=== PATIENT | female | born 2000 | race Caucasian/White ===

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

== ENCOUNTER → 2022-01-16 | Outpatient (CLI) | payer OTHER, SELFPAY ==
--- NOTE | 2022-01-16 10:27 | MRI_ITS ---
EXAM: MR HEAD WITHOUT AND WITH INTRAVENOUS CONTRAST CLINICAL INDICATION: aphasia, speech problems -- n/a TECHNIQUE: Multiplanar and multisequence MR images of the brain were obtained without and with intravenous contrast. This report was created using [employer] report [employer] technology. CONTRAST: 13 ml IV Clariscan COMPARISON: None. FINDINGS: BRAIN AND EXTRA-AXIAL SPACES: No diffusion restriction to suspect acute or subacute ischemic infarct. No focal signal abnormalities throughout the brain parenchyma in all pulse sequences. Following IV contrast administration, there are no abnormal enhancing lesions intra-axially and extra-axially. No intra- or extra-axial hemorrhage. No intracranial mass or mass effect. Posterior fossa structures are unremarkable. Ventricles are appropriate for age. No hydrocephalus. Basal cisterns are patent. SELLA: Unremarkable. Normal sella turcica, pituitary gland, infundibular stalk, optic chiasm and hypothalamus. AUDITORY SYSTEM: Unremarkable. The internal auditory canals are patent. BONES/JOINTS: Unremarkable. No discrete lytic or blastic abnormalities. SINUSES: Unremarkable as visualized. Clear. MASTOID AIR CELLS: Unremarkable as visualized. Clear. ORBITS: Unremarkable as visualized. Both globes, extraocular muscles, optic nerves and retrobulbar fat appear unremarkable. VASCULATURE: Unremarkable as visualized. Normal flow voids in the major intracranial circulation. MRI/Brain W/WO Contrast IMPRESSION: Normal MRI brain with and without contrast. Electronically Signed: Tai Matthew MD at 12:06 EST ,
== END | disposition home or self-care (01) ==
PROVIDERS: PCP Pediatrics; Referring Provider Nurse Practitioner Family; Visit Provider Nurse Practitioner Family
DX: R47.01 Aphasia (principal)
CPT/HCPCS: 70553; A9575

== ENCOUNTER → 2022-05-04 | Outpatient (CLI) | payer OTHER, SELFPAY ==
[2022-05-04 15:26] LABS: Absolute Lymphocyte Count 2.96 X10^3/uL (0.83-4.51); Absolute Neutrophil Count 3.8 X10^3/uL (2.0-7.7); Basophil# 0.02 X10^3/uL; Basophil% 0.3 % (0-1); Eosinophil# 0.01 X10^3/uL; Eosinophils% 0.1 % (0-5); Hemoglobin 14.6 g/dL (12.0-15.0); Lymphocyte # 2.96 X10^3/ul (0.83-4.51); Lymphocyte % 42.2 % (19-41); Mean Corpuscular Volume 88.5 fL (81-99); Mean Platelet Vol. 11.4 fl (6.2-12.0); Monocyte# 0.27 X10^3/uL; Monocyte% 3.8 % (0-10); NRBC Flagged by Analyzer 0 % (0-5); Neutrophil # 3.75 X10^3/uL (2.7-7.7); Neutrophil % 53.5 % (47-70); Platelet Count 242 K/mm3 (150-450); RBC Distribution Width CV 11.7 % (11.6-14.6); RBC Distribution Width SD 37.3 fl (35.1-43.9); Red Blood Count 4.86 M/mm3 (4.2-5.4)
[2022-05-04 15:50] LABS: AST(SGOT) 31 U/L (15-37); Alanine Aminotransfer ALT/SGPT 26 U/L (13-56); Cholesterol 177 mg/dL (200); High Density Lipoprotein 95 mg/dL; Triglycerides 48 mg/dL; Very Low Density Lipoprotein 10 mg/dL (5-40)
[2022-05-04 16:05] LABS: hCG Titer Quant., Serum < 1 mIU/mL (1-3)
== END | disposition home or self-care (01) ==
LOC: MTLAB 12:39
PROVIDERS: PCP Pediatrics; Referring Provider Dermatology; Visit Provider Dermatology
DX: L70.0 Acne vulgaris (principal); L90.5 Scar conditions and fibrosis of skin; L71.8 Other rosacea; Z79.899 Other long term (current) drug therapy
CPT/HCPCS: 36415; 80061; 84450; 84460; 84702; 85025

== ENCOUNTER → 2022-05-29 | Outpatient (CLI) | payer OTHER, SELFPAY ==
[2022-05-29 12:00] LABS: Internal QC Validated? YES +Cl - CLEAR BKGD; Pregnancy, Urine Negative Negative
== END | disposition home or self-care (01) ==
LOC: MTLAB 10:30
PROVIDERS: PCP Pediatrics; Referring Provider Dermatology; Visit Provider Dermatology
DX: L70.0 Acne vulgaris (principal); L90.5 Scar conditions and fibrosis of skin; Z79.899 Other long term (current) drug therapy; L23.3 Allergic contact dermatitis due to drugs in contact with skin
CPT/HCPCS: 81025

== ENCOUNTER → 2022-06-07 | Outpatient (CLI) | payer OTHER, SELFPAY ==
[2022-06-07 16:33] LABS: Internal QC Validated? YES +Cl - CLEAR BKGD; Pregnancy, Urine Negative Negative
== END | disposition home or self-care (01) ==
LOC: MTLAB 14:49
PROVIDERS: PCP Pediatrics; Referring Provider Dermatology; Visit Provider Dermatology
DX: L70.0 Acne vulgaris (principal); L90.5 Scar conditions and fibrosis of skin; L23.3 Allergic contact dermatitis due to drugs in contact with skin; Z79.899 Other long term (current) drug therapy
CPT/HCPCS: 81025

== ENCOUNTER → 2022-06-27 | Outpatient (CLI) | payer OTHER, SELFPAY ==
[2022-06-27 18:18] LABS: Internal QC Validated? YES +Cl - CLEAR BKGD; Pregnancy, Urine Negative Negative
== END | disposition home or self-care (01) ==
LOC: MTLAB 15:44
PROVIDERS: PCP Pediatrics; Referring Provider Dermatology; Visit Provider Dermatology
DX: L70.0 Acne vulgaris (principal); L90.5 Scar conditions and fibrosis of skin; L23.3 Allergic contact dermatitis due to drugs in contact with skin; Z79.899 Other long term (current) drug therapy
CPT/HCPCS: 81025

== ENCOUNTER → 2022-08-01 | Outpatient (CLI) | payer OTHER, SELFPAY ==
[2022-08-01 17:46] LABS: Internal QC Validated? YES +Cl - CLEAR BKGD; Pregnancy, Urine Negative Negative
== END | disposition home or self-care (01) ==
LOC: MTLAB 15:27
PROVIDERS: PCP Pediatrics; Referring Provider Dermatology; Visit Provider Dermatology
DX: L70.0 Acne vulgaris (principal); L90.5 Scar conditions and fibrosis of skin; K13.0 Diseases of lips; L85.3 Xerosis cutis; M79.10 Myalgia, unspecified site; Z79.899 Other long term (current) drug therapy; L23.3 Allergic contact dermatitis due to drugs in contact with skin
CPT/HCPCS: 81025

== ENCOUNTER → 2022-09-14 | Outpatient (CLI) | payer OTHER, SELFPAY ==
[2022-09-14 12:22] LABS: AST(SGOT) 29 U/L (15-37); Alanine Aminotransfer ALT/SGPT 40 U/L (13-56); Cholesterol 210 mg/dL (200); High Density Lipoprotein 91 mg/dL; Triglycerides 73 mg/dL; Very Low Density Lipoprotein 15 mg/dL (5-40); hCG Titer Quant., Serum < 1 mIU/mL (1-3)
== END | disposition home or self-care (01) ==
PROVIDERS: PCP Pediatrics; Visit Provider Dermatology
DX: L70.0 Acne vulgaris (principal); L90.5 Scar conditions and fibrosis of skin; L85.3 Xerosis cutis; K13.0 Diseases of lips; M79.10 Myalgia, unspecified site; L23.3 Allergic contact dermatitis due to drugs in contact with skin; Z79.899 Other long term (current) drug therapy
CPT/HCPCS: 36415; 80061; 84450; 84460; 84702

== ENCOUNTER → 2022-10-16 | Outpatient (CLI) | payer OTHER, SELFPAY ==
[2022-10-16 12:05] LABS: Internal QC Validated? YES +Cl - CLEAR BKGD; Pregnancy, Urine Negative Negative
== END | disposition home or self-care (01) ==
LOC: MTLAB 09:28
PROVIDERS: PCP Pediatrics; Referring Provider Dermatology; Visit Provider Dermatology
DX: L70.0 Acne vulgaris (principal); L90.5 Scar conditions and fibrosis of skin; L85.3 Xerosis cutis; K13.0 Diseases of lips; M79.10 Myalgia, unspecified site; L23.3 Allergic contact dermatitis due to drugs in contact with skin; Z79.899 Other long term (current) drug therapy
CPT/HCPCS: 81025

== ENCOUNTER → 2022-11-13 | Outpatient (CLI) | payer OTHER, SELFPAY ==
[2022-11-13 12:07] LABS: Internal QC Validated? YES +Cl - CLEAR BKGD; Pregnancy, Urine Negative Negative
== END | disposition home or self-care (01) ==
PROVIDERS: PCP Pediatrics; Referring Provider Dermatology; Visit Provider Dermatology
DX: L70.0 Acne vulgaris (principal); L90.5 Scar conditions and fibrosis of skin; L85.3 Xerosis cutis; K13.0 Diseases of lips; M79.10 Myalgia, unspecified site; L23.3 Allergic contact dermatitis due to drugs in contact with skin; Z79.899 Other long term (current) drug therapy
CPT/HCPCS: 81025

== ENCOUNTER → 2022-12-28 | Outpatient (CLI) | payer OTHER, SELFPAY ==
[2022-12-28 17:45] LABS: Internal QC Validated? YES +Cl - CLEAR BKGD; Pregnancy, Urine Negative Negative
== END | disposition home or self-care (01) ==
LOC: MTLAB 14:49
PROVIDERS: PCP Pediatrics
DX: L70.0 Acne vulgaris (principal); L90.5 Scar conditions and fibrosis of skin; L85.3 Xerosis cutis; K13.0 Diseases of lips; M79.10 Myalgia, unspecified site; L23.3 Allergic contact dermatitis due to drugs in contact with skin; Z79.899 Other long term (current) drug therapy
CPT/HCPCS: 81025

== ENCOUNTER → 2023-01-26 | Outpatient (CLI) | payer OTHER, SELFPAY ==
[2023-01-26 17:38] LABS: Internal QC Validated? YES +Cl - CLEAR BKGD; Pregnancy, Urine Negative Negative
== END | disposition home or self-care (01) ==
LOC: MTLAB 14:41
PROVIDERS: PCP Pediatrics; Referring Provider Dermatology; Visit Provider Dermatology
DX: L70.0 Acne vulgaris (principal); L90.5 Scar conditions and fibrosis of skin; L85.3 Xerosis cutis; K13.0 Diseases of lips; M79.10 Myalgia, unspecified site; L23.3 Allergic contact dermatitis due to drugs in contact with skin; Z79.899 Other long term (current) drug therapy
CPT/HCPCS: 81025

== ENCOUNTER → 2023-03-16 | Outpatient (CLI) | payer OTHER, SELFPAY ==
--- OUTSIDE RECORDS SUMMARY | 2023-03-16 16:08 | XMS RPT_ITS | CCD ---
Author Name Unknown Address [address] [place] [address] Organization [facility] Care Team Providers Care Structures Engineer Name Role Phone Sheri Vyas Unavailable eRre Dowell Unavailable Unavailable Rere Todd Unavailable Unavailable Sheri Vyas Attending Rere Dowell Primary Care Unavailable Sheri Vyas Attending Emelina Rere Lee Primary Care Unavailable Fast DO, Nehal A Unavailable Manchak ELECTRO MECHANICAL ENGINEER, Emmy Unavailable Unavailable Unavailable Unavailable Unavailable Unavailable Fast DO, Nehal A Unavailable Unavailable Unavailable Harriet Zamudio CNP Consulting Unavailable Harriet Zamudio CNP Attending Unavailable Harriet Zamudio CNP Unavailable Harriet Zamudio CNP Unavailable Slarb SALES TRAINEE, Melissa Unavailable Unavailable Fast DO, Nehal A Unavailable Unavailable Primary Care Provider Unavailabl e BYRON LI Referring Unavailable BYRON LI Referring Unavailable BYRON LI Attending Unavailable BYRON LI Attending Unavailable CRISTIAN LEES~[id number] Admitting Unavailable CRISTIAN LEES~[id number], CRISTIAN MCDONALD Attending Unavailable RERE TODD Primary Care Unavailable TAMARA FOSTER MD Consulting Unavailable TAMARA FOSTER MD Consulting Unavailable RERE TODD Consulting Unavailable RERE TODD Consulting Unavailable Medications Current Medications Medication Drug Class(es) Dates Sig (Normalized) Sig (Original) busPIRone hydrochloride 15 mg oral tablet (14 sources) Start: 11-01-2023 take 1 tablet by mouth three times daily busPIRone 15 mg oral tablet 1 (one) Tablet tid for 90 days Quantity: 270 {Tablet} Refills: 3 Ordered: 20-Dec-2022 Aida Paz MD Start : 20-Dec-2022 Active Completed/Discontinued Medications Medication Drug Class(es) Dates Sig (Normalized) Sig (Original) B Wekxict-V68-Y Injection Injectable (11 sources) B Tgxigvs-W69-M Injection Injectable o2gbytg Active drospirenone / Ethinyl Estradiol (15 sources) Progestin, Estrogen Start: 12-18-2022 take 1 tablet by mouth once daily VESTURA, 28, 3-0.02 mg per tablet Take 1 tablet by mouth once daily. 30 tablet 6 12/18/2022 Active Problems Active Problems Problem Classification Problem Date Documented Da te Episodic/Chronic Anxiety disorders (20 sources) Mixed anxiety and depressive disorder; Translations: [Anxiety and depression] 08-30-2020 Chronic Past or Other Problems Problem Classification Problem Date Documented Da te Episodic/Chronic Unclassified (3 sources) Separation of AC joint Unclassified (2 sources) Mild concussion NEGATED: Highlighted row has been ruled out!Unclassified (7 sources) Problem Onset: 08-30-2020 08-30-2020 Results Test Name Value Interpretation Reference Range Facil ity Vital Signs Date Time Vital Sign Value Performing Clinician Facility 06-14-2022 13:16-0400 Body weight 70.31 kg Byron Li MD Work Phone: [facility] 06-14-2022 13:16-0400 Diastolic blood pressure 74 mm[Hg] Byron Li MD Work Phone: [facility] 06-14-2022 13:16-0400 Systolic blood pressure 130 mm[Hg] Byron Li MD Work Phone: [facility] 01-02-2022 14:19-0500 Body height 161.29 cm Melissa Ashton LPN [facility] Work Phone: 01-02-2022 14:19-0500 Body mass index (BMI) [Ratio] 26.72 kg/m2 [facility] Work Phone: 01-02-2022 14:19-050 Body surface area Derived from formula 1.74 m2 Melissa Ashton LPN [facility] Work Phone: 01-02-2022 14:050 Body temperature 97.7 [degF] Melissa Ashton LPN [facility] Work Phone: 01-02-2022 14:050 Body weight 69.51 kg Melissa Ashton LPN [facility] Work Phone: 01-02-2022 14:050 Diastolic blood pressure 82 mm[Hg] Melissa Ashton SALES TRAINEE [facility] Work Phone: Encounters Encounter Date Encounter Type Care Provider Facility Start: 12-18-2022 Refill Byron manuel MD Work Phone: OB/Gynecology Procedures Date Procedure Procedure Detail Performing Clinician Start: 06-14-2022 Urine test visual color cmprsn meths Byron Li MD Work Phone: Start: 01-16-2022 End: 01-16-2022 Brain W/WO Contrast Procedure Note: See Note; NOTES: [facility] Imaging Services [address] [place] [id number] Brain W/WO Contrast MR#: [id number] Acct: [id number] Name: THEODORE AGUILAR Rep #: [id number] : 2000 F 21 From: Tai Matthew MD PCP: Dr. Rere Todd MD Status: REG CLI Study: Brain W/WO Contrast Date of Exam: 01/16/22 Exam# [id number] Ordering Dr: Harriet Zamudio COIL REPAIR TECHNICIAN- C EXAM: MR HEAD WITHOUT AND WITH INTRAVENOUS CONTRAST CLINICAL INDICATION: aphasia, speech problems -- n/a TECHNIQUE: Multiplanar and multisequence MR images of the brain were obtained without and with intravenous contrast. This report was created using [employer] report generation technology. CONTRAST: 13 ml IV Clariscan COMPARISON: None. FINDINGS: BRAIN AND EXTRA-AXIAL SPACES: No diffusion restriction to suspect acute or subacute ischemic infarct. No focal signal abnormalities throughout the brain parenchyma in all pulse sequences. Following IV contrast administration, there are no abnormal enhancing lesions intra-axially and extra-axially. No intra- or extra-axial hemorrhage. No intracranial mass or mass effect. Posterior fossa structures are unremarkable. Ventricles are appropriate for age. No hydrocephalus. Basal cisterns are patent. SELLA: Unremarkable. Normal sella turcica, pituitary gland, infundibular stalk, optic chiasm and hypothalamus. AUDITORY SYSTEM: Unremarkable. The internal auditory canals are patent. BONES/JOINTS: Unremarkable. No discrete lytic or blastic abnormalities. SINUSES: Unremarkable as visualized. Clear. MASTOID AIR CELLS: Unremarkable as visualized. Clear. ORBITS: Unremarkable as visualized. Both globes, extraocular muscles, optic nerves and retrobulbar fat appear unremarkable. VASCULATURE: Unremarkable as visualized. Normal flow voids in the major intracranial circulation. MRI/Brain W/WO Contrast IMPRESSION: Normal MRI brain with and without contrast. Electronically Signed: Tai Matthew MD at 12:06 [facility] Reading Location ID and State: [address] [place] [address] , Service support , CC: Harriet Zamudio COIL REPAIR TECHNICIAN; Dr. Rere Todd MD Equipment Analyst: Signed Harriet Zamudio CNP Work Phone: Plan of Treatment Date Care Activity Detail Author Start: 10-25-2023 Urine microalbumin profile [facility] Start: 06-15-2023 CHLAMYDIA SCREENING (18-24) CHLAMYDIA SCREENING (18-24) [facility] Start: 06-15-2023 GC (GONORRHEA) SCREENING (18-24) GC (GONORRHEA) SCREENING (18-24) [facility] Start: 10-20-2022 Influenza vaccination [facility] Start: 02-19-2022 DEPRESSION ASSESSMENT DEPRESSION ASSESSMENT [facility] Start: 01-02-2022 Antinuclear antibodies neeraj NEERAJ (ANTINUCLEAR ANTIBODY) (02515) [facility] Work Phone: Start: 01-02-2022 Antibody borrelia burgdorferi confirmatory tst Lyme Disease,Serum, Western Blot (43219) [facility] Work Phone: Start: 11-14-2022 Antibody borrelia burgdorferi lyme disease Lyme Disease Antibody W/ Reflex (62083) [facility]; [facility] Work Phone: Start: 01-02-2022 Assay of thyroid stimulating hormone tsh TSH (THYROID STIMULATING HORMONE) (76089) [facility]; [facility] Work Phone: Start: 01-02-2022 Sedimentation rate rbc automated Sedimentation Rate-ESR (25873) [facility] Work Phone: Start: 01-02-2022 C-reactive protein C-REACTIVE PROTEIN (76076) [facility] Work Phone: Start: 01-02-2022 Comprehensive metabolic panel METABOLIC PANEL, COMPREHENSIVE (46500) [facility]; [facility] Work Phone: Start: 01-02-2022 Blood count complete auto&auto difrntl wbc CBC with auto diff (93295) [facility]; [facility] Work Phone: Start: 01-02-2022 Antinuclear antibodies neeraj NEERAJ (ANTINUCLEAR ANTIBODY) (88512) [facility]; [facility] Work Phone: Start: 01-02-2022 Extractable nuclear antigen antibody any method Systemic Lupus Profile (25654) [facility]; [facility] Work Phone: Start: 01-02-2022 Cyanocobalamin vitamin b-12 VITAMIN B12 AND FOLATES (32505) [facility]; [facility] Work Phone: Start: 01-02-2022 1 25 dihydroxy includes fractions if performed VITAMIN D, 1, 25-DIHYDROXY (55327) [facility]; [facility] Work Phone: Start: 01-02-2022 Procedure Education Eprescribed prescriptions (G8553) [facility]; [facility] Work Phone: Start: 08-15-2021 Procedure Education Eprescribed prescriptions (G8553) [facility]; [facility] Work Phone: Start: 01-24-2021 Procedure Education Eprescribed prescriptions (G8553) [facility]; [facility] Work Phone: Start: 08-30-2020 25 hydroxy includes fractions if performed Vitamin D Hydroxy (50261) [facility]; [facility] Work Phone: Start: 08-30-2020 Cyanocobalamin vitamin b-12 VITAMIN B-12 (CYANOCOBALAMIN) (18947) [facility]; [facility] Work Phone: Start: 08-30-2020 Urnls dip stick/tablet reagent auto microscopy URINALYSIS, W/ MICRO (61316) [facility]; [facility] Work Phone: Start: 08-30-2020 Assay of thyroid stimulating hormone tsh TSH (28151) [facility]; [facility] Work Phone: Start: 08-30-2020 Blood count complete auto&auto difrntl wbc CBC W/AUTO DIFF WBC (00417) [facility]; [facility] Work Phone: Start: 08-30-2020 Comprehensive metabolic panel METABOLIC PANEL, COMPREHENSIVE (43637) [facility]; [facility] Work Phone: Start: 08-30-2020 Procedure Education Eprescribed prescriptions (G8578) [facility]; [facility] Work Phone: Start: 2020 CHLAMYDIA SCREENING (18-24) CHLAMYDIA SCREENING (18-24) [facility] Start: 2020 GC (GONORRHEA) SCREENING (18-24) GC (GONORRHEA) SCREENING (18-24) [facility] Start: 2020 HEPATITIS C SCREENING HEPATITIS C SCREENING [facility] Start: 2020 HIV SCREENING HIV SCREENING [facility] Start: 2016 PEDS TO ADULT TRANSITION ANNUAL ASSESSMENT PEDS TO ADULT TRANSITION ANNUAL ASSESSMENT [facility] Start: 2014 PEDS TO ADULT TRANSITION INITIAL DISCUSSION PEDS TO ADULT TRANSITION INITIAL DISCUSSION [facility] Start: 2002 COVID-19 VACCINE (#1) COVID-19 VACCINE (#1) [facility] Chlamydia trachomatis+Neisseria gonorrhoeae DNA [Presence] in Unspecified specimen by YANET with probe detection GC/CHLAMYDIA DNA DET Lab Routine Encounter for insertion of mirena IUD 06/14/2022 1:56 PM EDT [facility] Work Phone: T VAGINALIS AMPLIFICATION T VAGINALIS AMPLIFICATION Lab Routine Encounter for insertion of mirena IUD 06/14/2022 1:56 PM EDT [facility] Work Phone: [facility] Work Phone: [facility] Work Phone: [facility] Work Phone: [facility] Immunizations Immunization Date Immunization Notes Care Provider [facility] 05-07-2020 Human Papillomavirus 9-valent vaccine Byron Li MD Work Phone: [facility] Work Phone: 04-16-2020 meningococcal B vacc ine, recombinant, OMV, adjuvanted Byron Li MD Work Phone: [facility] Work Phone: 01-07-2020 pneumococcal polysaccharide vaccine, 23 valent Byron Li MD Work Phone: [facility] Work Phone: 12-24-2018 Human Papillomavirus 9-valent vaccine Byron Li MD Work Phone: [facility] Work Phone: 12-24-2018 influenza, injectabl e, quadrivalent, preservative free Byron Li MD Work Phone: [facility] Work Phone: 12-24-2018 meningococcal B vacc ine, recombinant, OMV, adjuvanted Byron Li MD Work Phone: [facility] Work Phone: 12-24-2018 meningococcal polysaccharide (groups A, C, Y and W-135) diphtheria toxoid conjugate vaccine (MCV4P) Byron Li MD Work Phone: [facility] Work Phone: 12-24-2018 influenza virus vacc ine, unspecified formulation Byron Li MD Work Phone: [facility] 12-14-2017 Human Papillomavirus 9-valent vaccine Byron Li MD Work Phone: [facility] Work Phone: 12-14-2017 influenza, injectabl e, quadrivalent, preservative free Byron Li MD Work Phone: [facility] Work Phone: 12-08-2016 influenza, injectabl e, quadrivalent, preservative free Byron Li MD Work Phone: [facility] Work Phone: 12-08-2016 poliovirus vaccine, inactivated Byron Li MD Work Phone: [facility] Work Phone: 11-29-2015 hepatitis A vaccine, pediatric/adolescent dosage, 2 dose schedule Byron Li MD Work Phone: [facility] Work Phone: 11-29-2015 influenza, injectabl e, quadrivalent, preservative free Byron Li MD Work Phone: [facility] Work Phone: 11-18-2014 hepatitis A vaccine, pediatric/adolescent dosage, 2 dose schedule Byron Li MD Work Phone: [facility] Work Phone: 10-24-2013 meningococcal polysaccharide (groups A, C, Y and W-135) diphtheria toxoid conjugate vaccine (MCV4P) Byron Li MD Work Phone: [facility] Work Phone: 10-24-2013 tetanus toxoid, redu jose diphtheria toxoid, and acellular pertussis vaccine, adsorbed Byron Li MD Work Phone: [facility] Work Phone: 12-08-2011 influenza, seasonal, injectable Byron Li MD Work Phone: [facility] Work Phone: 12-05-2010 influenza, seasonal, injectable Byron Li MD Work Phone: [facility] Work Phone: 11-15-2009 influenza virus vacc ine, whole virus Byron Li MD Work Phone: [facility] Work Phone: 12-19-2008 novel influenza-H1N1 -09, preservative-free, injectable Byron Li MD Work Phone: [facility] Work Phone: 11-26-2008 influenza, seasonal, injectable Byron Li MD Work Phone: [facility] Work Phone: 05-04-2008 varicella virus vaccine Alta Li MD Work Phone: [facility] Work Phone: 01-24-2008 influenza virus vacc ine, whole virus Byron Li MD Work Phone: [facility] Work Phone: 11-04-2007 diphtheria, tetanus toxoids and acellular pertussis vaccine, unspecified formulation Byron Li MD Work Phone: [facility] Work Phone: 11-04-2007 measles, mumps and rubella virus vaccine Byron Li MD Work Phone: [facility] Work Phone: 11-04-2007 poliovirus vaccine, inactivated Byron Li MD Work Phone: [facility] Work Phone: 11-03-2005 measles, mumps and rubella virus vaccine Byron Li MD Work Phone: [facility] Work Phone: 09-28-2003 diphtheria, tetanus toxoids and acellular pertussis vaccine, unspecified formulation Byron Li MD Work Phone: [facility] Work Phone: 09-28-2003 haemophilus influenz ae type b vaccine, PRP-T conjugate Byron Li MD Work Phone: [facility] Work Phone: 05-08-2003 hepatitis B vaccine, pediatric or pediatric/adolescent dosage Byron Li MD Work Phone: [facility] Work Phone: 05-08-2003 pneumococcal conjuga te vaccine, 7 valent Byron Li MD Work Phone: [facility] Work Phone: 05-08-2003 varicella virus vaccine Alta Li MD Work Phone: [facility] Work Phone: 2002 diphtheria, tetanus toxoids and acellular pertussis vaccine, unspecified formulation Byron Li MD Work Phone: [facility] Work Phone: 2002 haemophilus influenz ae type b vaccine, PRP-T conjugate Byron Li MD Work Phone: [facility] Work Phone: 2002 pneumococcal conjuga te vaccine, 7 valent Byron Li MD Work Phone: [facility] Work Phone: 2002 diphtheria, tetanus toxoids and acellular pertussis vaccine, unspecified formulation Byron Li MD Work Phone: [facility] Work Phone: 2002 haemophilus influenz ae type b vaccine, PRP-T conjugate Byron Li MD Work Phone: [facility] Work Phone: 2002 pneumococcal conjuga te vaccine, 7 valent Byron Li MD Work Phone: [facility] Work Phone: 2002 poliovirus vaccine, inactivated Byron Li MD Work Phone: [facility] Work Phone: 2002 diphtheria, tetanus toxoids and acellular pertussis vaccine, unspecified formulation Byron Li MD Work Phone: [facility] Work Phone: 2002 haemophilus influenz ae type b vaccine, PRP-T conjugate Byron Li MD Work Phone: [facility] Work Phone: 2002 pneumococcal conjuga te vaccine, 7 valent Byron Li MD Work Phone: [facility] Work Phone: 2002 poliovirus vaccine, inactivated Byron Li MD Work Phone: [facility] Work Phone: 2002 hepatitis B vaccine, pediatric or pediatric/adolescent dosage Byron Li MD Work Phone: [facility] Work Phone: 2002 hepatitis B vaccine, pediatric or pediatric/adolescent dosage Byron Li MD Work Phone: [facility] Work Phone: Payers Date Payer Category Payer Private Health Insurance [id number] 2020 Private Health Insurance [id number] 2002 Unknown [id number] 1973 Unknown [id number] 1973 Unknown [id number] 1973 Unknown [id number] 1973 Unknown [id number] 1959 Private Health Insurance [id number] Unknown [id number] Unknown [employer] PPO Social History Date Type Detail Facility Start: 06-14-2022 End: 06-21-2022 Caffeine Use Caffeine Use [facility] Work Phone: Tobacco use: Tobacco use: [facility] Work Phone: Start: 02-02-2014 Tobacco smoking status NHIS Never smoked tobacco [facility] Work Phone: Start: 06-14-2022 Alcohol intake Not Asked [facility] Start: 2000 Sex Assigned At Not on file [facility] Start: 06-14-2022 End: 06-21-2022 Tobacco use panel [facility] National Score (1-100), lower number is lower risk 36 [facility] Clinical Notes 11-20-2020 to 12-18-2022 Telephone Encounter - Danna Edmonds RN - 12/18/2022 12:16 PM AISLINN Cosme - 06/22/2022 9:41 AM Kusum Valerio RN - 06/14/2022 2:53 PM EDTPatient Instructions Note Date & Type Note Facility 12-18-2022 Miscellaneous Notes Patient last seen in May 2022. Asking if her OCP can be sent in by [facility] instead of her timber management assistant whom she doesn't see anymore. RX pending with updated pharmacy. Also, the Mirena IUD is still on her medication list. Patient stated that she had a bad reaction the day it was inserted so the IUD was removed? Danna Edmonds RN documented in this encounter [facility] 06-22-2022 Note HNO ID: [id number] Author: AISLINN Park Service: ? Author Type: Genetic Counselor Type: Progress Notes Filed: 06/26/2022 2:22 PM Note Text: [facility] Consultation Note Genetic Counselor: Wade Washburn, MS, CGC Patient: Theodore Aguilar Patient Name and confirmed at initiation of visit. HIGH LEVEL SUMMARY: The patient has a pathogenic variant in BRCA2 ([id number]) confirming a diagnosis of Hereditary Breast and Ovarian Cancer syndrome. NCCN management guidelines were reviewed and she was recommended to establish in Medical Breast at the age of 27. Genetic counseling and consideration of genetic testing is recommended for the patient's mother and father now and her sisters at a later date. IDENTIFICATION AND CHIEF COMPLAINT: Dr. Byron Li requested a consultation for genetic counseling and risk assessment for Theodore Aguilar, a 22 year old female, for discussion of her personal history of a pathogenic variant in BRCA2. She presents to clinic today to discuss the possibility of a genetic predisposition to cancer, and to further clarify her risks, as well as her family members' risks for cancer. HISTORY OF PRESENT ILLNESS: Theodore Aguilar is a 22 year old female with no personal history of cancer. She underwent XomeDx (clinical whole exome sequence analysis) at an outside institution in 2019 due to a history of: hypogammaglobulinemia, immunodeficiency, and recurrent infections. Testing incidentally identified a pathogenic variant in BRCA2. This finding was recently discussed with her AUTOMOTIVE PARTS COUNTER ASSOCIATE and led to today's consult to discuss impact of results on her care and family. CANCER SURVEILLANCE HISTORY: Mammograms: No Breast MRI's: No Breast Biopsies: No Colonoscopy: No EGD: No GI Polyps: N/A Pelvic Exam: Yes / 06/11 Pap Smear: Yes / 06/11 Dermatology: No SOCIAL HISTORY: Social History Tobacco Use Smoking status: Never FAMILY HISTORY: We obtained a detailed, 4-generation family history. Significant diagnoses are listed below: Maternal grandfather: metastatic prostate cancer at 55, 58 2 paternal great aunts with breast cancer A copy of the patient's pedigree will be available under the scanned documents tab following today's visit. GENETIC COUNSELING RISK ASSESSMENT, DISCUSSION, AND SUGGESTED FOLLOW UP: We reviewed that Theodore's genetic testing results confirm a diagnosis of Hereditary Breast and Ovarian Cancer Syndrome Hereditary Breast and Ovarian Cancer Syndrome Women who have a BRCA2 pathogenic/likely pathogenic variant have a 56-87% lifetime risk of developing breast cancer and a 13-29% risk for developing ovarian cancer. This is much higher than the 12% lifetime risk of developing breast cancer and 1-2% lifetime risk of developing ovarian cancer for women in the general population. Women with BRCA2 pathogenic/likely pathogenic variants who have had breast cancer have up to a 60% risk of developing a second breast cancer. Men and women with BRCA2 pathogenic/likely pathogenic variants have a 5-10% lifetime risk of pancreatic cancer. Hereditary Breast and Ovarian Cancer Syndrome Management (NCCN Guidelines Version 2.2020) WOMEN Breast awareness starting at age 18 y Clinical breast exam, every 6-12 mo, starting at 25 y Breast screening Age 25-29 y, annual breast MRI screening with contrast (or mammogram with consideration of tomosynthesis, only if MRI is unavailable) or individualized based on family history if a breast cancer diagnosis before age 30 is present Age 30-75 y, annual mammogram and breast MRI screening. Age >75 y, management should be considered on an individual basis. For women with a BRCA2 pathogenic/likely pathogenic variant who are treated for breast cancer, screening of remaining breast tissue with annual mammography and breast MRI should continue. Discuss option of risk-reducing mastectomy Counseling may include discussion regarding degree of protection, reconstruction options, and risks. In addition, the family history and residual breast cancer risk with age and life expectancy should be considered during counseling. Recommend risk-reducing salpingo-oophorectomy (ideally in consultation with a foreman or supervisor and operator oncologist), typically between 35 and 40 y, and upon completion of child bearing. Because ovarian cancer onset in patients with BRCA2 pathogenic/likely pathogenic variants is an average of 8-10 years later than patients with BRCA1 pathogenic/likely pathogenic variants, it is reasonable to delay RRSO until age 40-45y in those with BRCA2 pathogenic/likely pathogenic variants unless age at diagnosis in the family warrants earlier age for consideration in prophylactic surgery. See Risk Reducing Salpingo-Oophorectomy (RRSO) Protocol in NCCN Guidelines for Ovarian Cancer - Principles of Surgery. Counseling includ (more content not included)... [facility] 06-22-2022 History of Present illness Narrative [facility] Consultation Note Genetic Counselor: Wade Washburn, MS, [facility] Patient: Theodore Aguilar Patient Name and confirmed at initiation of visit. HIGH LEVEL SUMMARY: The patient has a pathogenic variant in BRCA2 ([id number]) confirming a diagnosis of Hereditary Breast and Ovarian Cancer syndrome. NCCN management guidelines were reviewed and she was recommended to establish in Medical Breast at the age of 27. Genetic counseling and consideration of genetic testing is recommended for the patient's mother and father now and her sisters at a later date. IDENTIFICATION AND CHIEF COMPLAINT: Dr. Byron Li requested a consultation for genetic counseling and risk assessment for Theodore Aguilar, a 22 year old female, for discussion of her personal history of a pathogenic variant in BRCA2. She presents to clinic today to discuss the possibility of a genetic predisposition to cancer, and to further clarify her risks, as well as her family members' risks for cancer. HISTORY OF PRESENT ILLNESS: Theodore Aguilar is a 22 year old female with no personal history of cancer. She underwent XomeDx (clinical whole exome sequence analysis) at an outside institution in 2019 due to a history of: hypogammaglobulinemia, immunodeficiency, and recurrent infections. Testing incidentally identified a pathogenic variant in BRCA2. This finding was recently discussed with her AUTOMOTIVE PARTS COUNTER ASSOCIATE and led to today's consult to discuss impact of results on her care and family. CANCER SURVEILLANCE HISTORY: Mammograms: No Breast MRI's: No Breast Biopsies: No Colonoscopy: No EGD: No GI Polyps: N/A Pelvic Exam: Yes / 06/11 Pap Smear: Yes / 06/11 Dermatology: No SOCIAL HISTORY: Social History Tobacco Use Smoking status: Never FAMILY HISTORY: We obtained a detailed, 4-generation family history. Significant diagnoses are listed below: Maternal grandfather: metastatic prostate cancer at 55, 58 2 paternal great aunts with breast cancer A copy of the patient's pedigree will be available under the scanned documents tab following today's visit. GENETIC COUNSELING RISK ASSESSMENT, DISCUSSION, AND SUGGESTED FOLLOW UP: We reviewed that Theodore's genetic testing results confirm a diagnosis of Hereditary Breast and Ovarian Cancer Syndrome Hereditary Breast and Ovarian Cancer Syndrome Women who have a BRCA2 pathogenic/likely pathogenic variant have a 56-87% lifetime risk of developing breast cancer and a 13-29% risk for developing ovarian cancer. This is much higher than the 12% lifetime risk of developing breast cancer and 1-2% lifetime risk of developing ovarian cancer for women in the general population. Women with BRCA2 pathogenic/likely pathogenic variants who have had breast cancer have up to a 60% risk of developing a second breast cancer. Men and women with BRCA2 pathogenic/likely pathogenic variants have a 5-10% lifetime risk of pancreatic cancer. Hereditary Breast and Ovarian Cancer Syndrome Management (NCCN Guidelines Version 2.202) WOMEN Breast awareness starting at age 18 y Clinical breast exam, every 6-12 mo, starting at 25 y Breast screening Age 25-29 y, annual breast MRI screening with contrast (or mammogram with consideration of tomosynthesis, only if MRI is unavailable) or individualized based on family history if a breast cancer diagnosis before age 30 is present Age 30-75 y, annual mammogram and breast MRI screening. Age >75 y, management should be considered on an individual basis. For women with a BRCA2 pathogenic/likely pathogenic variant who are treated for breast cancer, screening of remaining breast tissue with annual mammography and breast MRI should continue. Discuss option of risk-reducing mastectomy Counseling may include discussion regarding degree of protection, reconstruction options, and risks. In addition, the family history and residual breast cancer risk with age and life expectancy should be considered during counseling. Recommend risk-reducing salpingo-oophorectomy (ideally in consultation with a foreman or supervisor and operator oncologist), typically between 35 and 40 y, and upon completion of child bearing. Because ovarian cancer onset in patients with BRCA2 pathogenic/likely pathogenic variants is an average of 8-10 years later than patients with BRCA1 pathogenic/likely pathogenic variants, it is reasonable to delay RRSO until age 40-45y in those with BRCA2 pathogenic/likely pathogenic variants unless age at diagnosis in the family warrants earlier age for consideration in prophylactic surgery. See Risk Reducing Salpingo-Oophorectomy (RRSO) Protocol in NCCN Guidelines for Ovarian Cancer - Principles of Surgery. Counseling includes discussion of reproductive desires, extent of cancer risk, degree of protection for breast and ovarian cancer, management of menopausal symptoms, possible short-term hormone replacement therapy to a recommended maximum age of natural menopause, and related medical issues. Salpingectomy alone is not the standard of care for risk reduction although clinical trials are ongoing. The concern for risk-reducing salpingectomy alone is that women are still at risk for developing ovarian cancer. In addition, in premenopausal women, oophorectomy likely reduces the risk of developing breast cancer but the magnitude is uncertain and may be gene-specific. Address psychosocial, social, and [id number] aspects of undergoing risk-reducing mastectomy and/or salpingo-oophorectomy. For those patients who have not elected risk-reducing salpingo-oophorectomy, transvaginal ultrasound combined with serum CA-125 for ovarian cancer screening, although of uncertain benefit, may be considered at the clinician's discretion starting at age 30-35 y. Consider risk reduction agents as options for breast and ovarian cancer, including discussion risks and benefits. (See NCCN Guidelines for Breast Cancer Risk Reduction) MEN AND WOMEN Consider investigational imaging and screening studies, when available (eg, novel imaging technologies, more frequent screening intervals) in the context of a clinical trial. Education regarding signs and symptoms of cancer(s), especially those associated with BRCA2 pathogenic/likely pathogenic variants. No specific screening guidelines exist for melanoma, but general melanoma risk management is appropriate, such as annual full-body skin examination and minimizing UV exposure. REPRODUCTIVE OPTIONS For patients of reproductive age, advise about options for diagnosis and assisted reproduction including pre-implantation genetic diagnosis. Discussion should include known risks, limitations, and benefits of these technologies. BRCA2 pathogenic/likely pathogenic variants may be associated with the rare autosomal recessive condition, Fanconi anemia. Thus, for this gene, consideration would be given to carrier testing the partner for mutations in the same gene if it would inform reproductive decision-making and/or risk assessment and management. Since the patient does not have a first-degree or second-degree relative with pancreatic cancer, screening for pancreatic cancer is not indicated at this time. 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 [phone]) at age 27 to review medical management options and determine the best plan for her own care. Given patient's age, referral with gynecologic oncology should be deferred at this time. First-degree relatives (siblings, children, and parents) of an individual with a BRCA2 mutation each have a 50% risk of also having this mutation. Other relatives (grandchildren, nieces, nephews, aunts, uncles, grandparents, and cousins) could also be at risk of having this mutation. The patient should share her genetic testing results with all at-risk relatives so they may pursue genetic counseling. We recommend following up with genetics every few years to learn of any updates to medical management guidelines for individuals with BRCA2 pathogenic/likely pathogenic variants. The patient was seen for a total of 70 minutes, greater than 50% of which was spent [id number] counseling. This plan is being carried out under the oversight of Dr. Marisol Linda. This note will also be sent to the referring provider via the electronic medical record. Wade Washburn MS, [facility] Licensed, Certified Genetic Counselor [facility] CC: Dr. Byron Linda documented in this encounter [facility] [place] 06-14-2022 Note HNO ID: [id number] Author: Byron Li MD Service: ? Author Type: Physician Type: Progress Notes Filed: 06/14/2022 1:38 PM Note Text: Theodore presents today for IUD insertion for contraception. Patient's last menstrual period was 05/05/2022 (exact date). GC/chlamydia: Collected today test: negative Side effects including irregular bleeding were discussed with the patient. The patient understands that it should be removed in 7 years or sooner if the patient desires a . IUD source: office provided IUD lot #: [id number] Exp date: 07/18/2024 UNIVERSAL PROTOCOL / SAFETY CHECKLIST Procedure to be Performed: Mirena IUD isnertion Sign In: A Moment of CARE was completed. Personnel directly involved with the procedure wore the appropriate PPE (Personal Protective Equipment). Patient/Surrogate Stated/Verified: PATIENT VERIFIED(optional for EMERGENT procedures): Patient name, Date of , Relevant allergies, and The intended procedure Time Out Communication: Intended patient and procedure match the source documents. Consent documented and matches the intended procedure. No implant(s) inserted. Sign Out: SIGN OUT (optional for EMERGENT procedures): No specimen collected. All instruments, equipment, possible retained foreign bodies accounted for. Post-procedure follow-up management communicated and Plan of Care Visit completed when applicable. Byron Li M.D. The cervix was prepped with betadine. The uterus sounded to 7 cm and the uterus is Anteverted.. Using sterile technique, the Mirena IUD was inserted without difficulty and the string was cut to 2cm from the external os of the cervix. Patient tolerated procedure well. PLAN: Patient was advised to observe for signs and symptoms of infection including but not limited to fever, malodorous vaginal discharge and/or pain. The patient was told to check the string monthly for accurate placement. Bleeding expectations were reviewed. Follow up for next annual exam or sooner as needed. Byron Li MD [facility] 06-14-2022 Nurse Note Patient given injection of toradol- see APR. Tolerated well. Dr. Li in office at time of injection. Santa Valerio RN documented in this encounter [facility] 06-14-2022 Miscellaneous Notes Addended by: BYRON LI on: 06/14/2022 02:45 PM Modules accepted: Orders documented in this encounter [facility] 06-14-2022 Instructions Opal Lucas Ma - 06/14/2022 1:15 PM EDT POST IUD INSTRUCTIONS You may have irregular bleeding during the first 3 months of use. You may have mild-severe cramping for the next 48 hours. You may use over the counter medication (Motrin, Tylenol) as needed. Your IUD must be removed or replaced based on the following table: IUD Type Removed or replaced within: Olga 3 years Kyleena 5 years Mirena 8 years Paragard 10 years Call my office for signs/symptoms of infection such as severe cramping, fever, or unusual bleeding. Check for string placement as instructed by your doctor. If you have any additional questions, please contact the office. documented in this encounter [facility] 06-14-2022 History of Present illness Narrative Theodore presents today for IUD insertion for contraception. Patient's last menstrual period was 05/05/2022 (exact date). GC/chlamydia: Collected today test: negative Side effects including irregular bleeding were discussed with the patient. The patient understands that it should be removed in 7 years or sooner if the patient desires a . IUD source: office provided IUD lot #: [id number] Exp date: 07/18/2024 UNIVERSAL PROTOCOL / SAFETY CHECKLIST Procedure to be Performed: Mirena IUD isnertion Sign In: A Moment of CARE was completed. Personnel directly involved with the procedure wore the appropriate PPE (Personal Protective Equipment). Patient/Surrogate Stated/Verified: PATIENT VERIFIED(optional for EMERGENT procedures): Patient name, Date of , Relevant allergies, and The intended procedure Time Out Communication: Intended patient and procedure match the source documents. Consent documented and matches the intended procedure. No implant(s) inserted. Sign Out: SIGN OUT (optional for EMERGENT procedures): No specimen collected. All instruments, equipment, possible retained foreign bodies accounted for. Post-procedure follow-up management communicated and Plan of Care Visit completed when applicable. Byron Li M.D. The cervix was prepped with betadine. The uterus sounded to 7 cm and the uterus is Anteverted.. Using sterile technique, the Mirena IUD was inserted without difficulty and the string was cut to 2cm from the external os of the cervix. Patient tolerated procedure well. PLAN: Patient was advised to observe for signs and symptoms of infection including but not limited to fever, malodorous vaginal discharge and/or pain. The patient was told to check the string monthly for accurate placement. Bleeding expectations were reviewed. Follow up for next annual exam or sooner as needed. Byron Li MD documented in this encounter [facility] [place] 05-30-2022 Note HNO ID: [id number] Author: Byron Li MD Service: ? Author Type: Physician Type: Progress Notes Filed: 05/30/2022 3:44 PM Note Text: Theodore is a 22 year old No obstetric history on file. who presents for an annual gynecologic exam with complaints, recurrent UTIs . Genetic marker for breast cancer. Considering new control, sometimes forgets doses. Has gotten UTIs more frequently since becoming more sexually active. Burning a nd frequency when symptomatic. Treated 3 times in past 2 months or so. Treated at urgent care. Has been on OCPS for 5 years or so for cycle regularity but would like to consider LARC. Presents: alone Menses: cycles every 25 days and 5 days of flow. Contraception: Vestura HPV vaccine: Yes Last pap smear: never Sexually active: Yes Concerns about STIs, asymptomatic but wants peace of mine OB History No obstetric history on file. 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 No abdominal pain, nausea, vomiting, diarrhea, or constipation. Bladder: No dysuria, gross hematuria, urinary frequency, urinary urgency, or incontinence. Breast: No breast lumps, nipple d/c, overlying skin changes, redness or skin retraction. TEACHING PHYSICIAN NOTE OF PERSONAL INVOLVEMENT IN CARE: I have personally seen and examined the patient and performed the medical decision-making components. I have reviewed the medical student documentation and verified the findings in the note as written. Any additions or changes are noted in bold/italics. Signature: Byron Li Date: 05/30/2022 Time: 3:43 PM Below portion of note completed by me. Allergies and current medication updated:Yes EXAM: BP 124/82 Ht 5' 3.25 (1.61m) Wt 158 lb (71.7kg) LMP 05/05/2022 BMI 27.75 kg/(m2). GENERAL: pleasant, in no apparent distress HEENT: Normocephalic, atraumatic, mucus membranes moist, and no lesions NECK: Supple, full range of motion, no adenopathy, and thyroid normal DERMATOLOGY: Normal, without lesions, non-icteric, and non-hirsute BREAST: soft, non-tender, symmetric, no dominant mass, normal nipple-areolar complex, no lymphadenopathy, and no nipple discharge CHEST: Normal inspiratory effort ABDOMEN: soft, non-tender, and no masses PELVIC: deferred BIMANUAL: deferred NEURO: alert and oriented x3,exam grossly non-focal EXTREMITIES: normal ASSESSMENT/PLAN: 1) Health maintenance: Pap starting at the age of 21. Safe sex practices reviewed. HPV vaccine completed series.. 2) Contraception: combined hormonal contraceptives. Contraceptive options reviewed and information provided. 3) STD screening: would like at time of IUD insertion Recurrent UTIS, d/w her importance of f/u here for cultures so I can document recurrence and may need urology referal. Reviewed symptomatic measures. AZO prn until can be evaluated. Trial of prophylactic macrobid. Desires IUD insertion. D/w her r/ba/ to this 4) Follow up one year or sooner as needed. BRCA 2 positive according to records she brought, copy scanned in. D/ wher needs genetic counseling, family may need tested as could alter screening and treatment recommendations. She states understanding and has not had this in the past. urine culture today since has had recurences Byron Li MD [facility] 11-22-2020 Note Discharge/Transfer S evelia Name: Theodore Aguilar MR#: [id number] : 2000 Room #: 6113/01 Age/Sex: 20 y.o. female Admit Date: 11/20/2020 Admitting: Jackson Hendricks DO Discharge Date: 11/22/2020 Discharged from: [facility] Attending: Raffi Magaña MD Final Diagnosis: COVID-19 Significant Findings (Problem List): Active Hospital Problems Diagnosis COVID-19 Orthostatic hypotension Pre-syncope Resolved Hospital Problems No resolved problems to display. Reason for Hospitalization: Pre-syncope Discharge Condition: Good Hospital Course (Care, treatment and services provided): Brief Narrative Hospital Course: Theodore Aguilar is a 20 y.o. female, with history of hypogammaglobinemia and recent COVID positive test and COVID antibody infusion, who presented with multiple near-syncopal episodes. 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 Was seen by PCP 4 days SHUTTLE FIXER and found to be COVID positive. At this visit, patient had a syncopal episode. [place] nausous, diaphoretic, lightheaded with blurry vision. Sent to [place] ED, where workup was negative and patient sent home. Had monoclonal antibody infusion 2 days SHUTTLE FIXER, and had another pre-syncopal event where she described the same symptoms. These events happened subsequently multiple times at home, one in which pulse ox read HR 43. Patient returned to ED. In the ED, bradycardic, vitals otherwise wnl. She received 1L NSB x2. CXR unremarkable. EKG showed bradycardia but was NSR. CBC, BMP,CRP, D-dimer, LFTs, troponin all WNL. ESR 10. BNP 45. Urine studies wnl. HCG negative. Orthostatics were positive. Transferred to general medical floor for further management. On the floor, patient was well-appearing, and denied dizziness. mIVF were started. No SOB, pain, congestion, or cough throughout hospitalization. Patient did not require supplemental oxygen. Orthostatic vitals were repeated in AM and improved. She had some significant nausea improved with zofran and was tolerating PO on DC. Discharged home in stable condition and will follow-up with PCP in 2-3 days. Immunizations(administered this admission): None Significant Imaging Results: X-Ray Chest Pa(ap) & Lateral Final Result IMPRESSION: Normal radiographic appearance of the chest This report has been created using voice recognition software EKG 12 lead (Results Pending) Pending Test Results and Tests to Obtain as Outpatient: In-Process Results No orders found from 10/24/2020 to 11/23/2020. Preliminary Results No orders found from 10/24/2020 to 11/23/2020. Disposition: She was discharged to home. Discharge Medications: She did not have significant changes to their home medications (see below) Medication List START taking these medications Morning Afternoon Evening Bedtime As Needed ondansetron 8 MG disintegrating tablet Take 1 Tablet (8 mg) by mouth every 8 hours as needed for Nausea for up to 5 days Commonly known as: ZOFRAN-ODT [ ] [ ] [ ] [ ] [ ] CONTINUE taking these medications which HAVE NOT changed at this visit Morning Afternoon Evening Bedtime As Needed acetaminophen 500 MG tablet Take by mouth every 4 hours as needed for Pain Commonly known as: TYLENOL [ ] [ ] [ ] [ ] [ ] BENADRYL ALLERGY/SINUS PO Take 5 mL by mouth 4 times daily [ ] [ ] [ ] [ ] [ ] busPIRone 5 MG tablet Take by mouth Commonly known as: BUSPAR [ ] [ ] [ ] [ ] [ ] cyanocobalamin 1000 MCG/ML injection Commonly known as: VIT B12 [ ] [ ] [ ] [ ] [ ] Drospirenone-Ethinyl Estradiol 3-0.02 MG tablets Take 1 Tablet by mouth daily Commonly known as: AGNIESZKA [ ] [ ] [ ] [ ] [ ] DULoxetine 30 MG capsule Take by mouth Commonly known as: CYMBALTA [ ] [ ] [ ] [ ] [ ] EPIDUO FORTE 0.3-2.5 % Gel Generic drug: Adapalene-Benzoyl Peroxide [ ] [ ] [ ] [ ] [ ] fluticasone 50 MCG/ACT nasal spray 2 Sprays by Each Nare route daily Commonly known as: FLONASE [ ] [ ] [ ] [ ] [ ] ibuprofen 200 MG tablet Take by mouth every 8 hours as needed for Pain Take with meals. Commonly known as: MOTRIN [ ] [ ] [ ] [ ] [ ] methylPREDNISolone 8 MG tablet Take 8 mg by mouth 3 times daily Commonly known as: MEDROL [ ] [ ] [ ] [ ] [ ] sulfamethoxazole-trimethoprim 400-80 MG tablet Take 1 Tablet by mouth daily Commonly known as: BACTRIM [ ] [ ] [ ] [ ] [ ] SUMAtriptan Succinate 100 MG tablet Take 1 Tab (100 mg) by mouth as needed (migraine) Commonly known as: IMITREX [ ] [ ] [ ] [ ] [ ] STOP taking these medications Azithromycin 500 MG tablet Commonly known as: ZITHROMAX Where to Get Your Medications These medications were sent to [facility] [address] [facility] [address] [place] [id number] ondansetron 8 MG disintegra (more content not included)... [facility] 11-20-2020 Note MEDICAL ADMISSION HI STORY AND PHYSICAL Date of Service: 11/21/2020 Attending Provider: Jackson Hendricks DO Primary Care Provider: Rere Todd MD Chief Complaint: Pre-syncopal episodes Reason for Hospitalization: Acute or unresolved changes in physiologic status History of Present illness: IP H&P HPI: Theodore is a 20 y.o. female With a PmHx of hypogammaglobinemia who presents with pre-syncopal episodes in the setting of recent Covid-19 infection. She is accompanied by her father. The history is provided by the patient and father One week prior to admission, Theodore developed congestion, rhinorrhea then a few days later was followed by severe headache, fatigue, and body aches. Was seen by PCP 4 days prior to admission and found to be COVID positive. At this visit, patient had a syncopal episode, which was the first of her lifetime. During this episode she felt very nauseas, diaphoretic, lightheaded and her vision was splotchy . She states that she lost consciousness momentarily and this was the only episode, that was a true syncopal episode. Patient sates that the nurse made her lay down and she felt back to baseline within 5 minutes, however she was taken directly from that PCP office visit to [facility], via ambulance. Patient had a negative work-up at [facility] and was sent home. Due to medical history, she met indications for Covid-19 monoclonal antibody infusion which she received 2 days prior to admisison. During that infusion she had a pre-syncopal event which she describes the same as previous episode. This time she reports never losing consciousness and again retuning to baseline within 5 mins after she laid down. These pre-syncopal episodes continued to occur about 3 more times at home. Patient had a pulse oximeter at home which read a heart rate of 43 after one of these episodes. Patient has only experienced these episodes while sitting up or standing. These episodes always come on suddenly, last 5-10 mins and patient will return to baseline in 5-10 minutes. No reported confusion before, during or following pre-syncopal episodes. Patient called her PCP after experiencing a few episodes at home and was directed to ED. In the ED, VSS. She received 1L NSB. EKG showed bradycardia but was NSR. CBC, BMP,CRP,D-dimer, ESR, LFTs, BNP, troponin all WNL. Chest x-ray, and urine studies were both WNL. Orthostatics were positive for HR and BP. Two NSB were given. On the floor, [facility], patient slightly bradycardic in 50's, but asymptomatic. Patient well appearing and denied dizziness, pain, SOB. MIVF were started and orthostatic vitals were done. Review of Systems: General: fever, fatigue, body aches HEENT: headache, rhinorrhea, no taste or smell. CV: Negative for chest pain, heart palpitations RESP: cough, no wheezing, shortness of breath GI: nausea, no vomiting, diarrhea, constipation, bloody stools : Negative for decreased urine output, hematuria, dysuria NEURO: syncope, no weakness, abnormal movements, numbness, tingling Musculoskeletal: Negative for myalgias, joint pain, back pain SKIN: Negative for rashes, lesions, changes in skin Medical/Surgical History: Past Medical History: Diagnosis Date Abdominal pain, other specified site 10/16/2013 Environmental allergies GERD (gastroesophageal reflux disease) 01/21/2014 Immunodeficiency On IVIG until 2009 Intermittent asthma 01/21/2014 Past Surgical History: Procedure Laterality Date ADENOIDECTOMY History: History Length: 53.3 cm Weight: 3.374 kg Delivery Method: Vaginal Gestation Age: 36.5 wks Development History: Milestones: All met as expected Diet History: Age appropriate / normal for age Drug/Food Allergies: Allergies Allergen Reactions Seasonal Allergies Other (See Comments) Runny nose Immunizations: Immunization History Administered Date(s) Administered DTaP 2002, 2002, 2002, 09/28/2003, 11/04/2007 Dtap, Unspecified Formulation 2002, 2002, 2002, 09/28/2003, 11/04/2007 H1N1 2008 Influenza A Monovalent 0.25 mL 12/19/2008 HIB 2002, 2002, 2002, 09/28/2003 HPV 9-valent 12/14/2017, 12/24/2018, 05/07/2020 Hepatitis A (PED/ADOL) 11/18/2014, 11/29/2015 Hepatitis B Ped/Adol 2002, 2002, 05/08/2003 INFLUENZA SPLIT 0.5 ML 11/15/2009, 12/05/2010, 12/08/2011 IPV 2002, 2002, 11/04/2007, 12/08/2016 Influenza Vaccine 01/24/2008 Influenza Vaccine 0.5 mL Quadrivalent (PF) 11/29/2015, 12/08/2016, 12/14/2017, 12/24/2018 Influenza Whole 01/24/2008, 11/15/2009 Influenza, Seasonal, Injectable 11/26/2008, 12/05/2010, 12/08/2011 MMR 11/03/2005, 11/04/2007 Meningococcal Conjugate ACWY Vaccine (MENACTRA) 10/24/2013, 12/24/2018 Pneumococcal Conjugate 2002, 2002, 2002, 05/08/2003 Pneumococcal Polysaccharide 01/07/2020 Serogroup B Meningococcal Vaccine (BEXSERO) 12/24/2018, 04/16/19 (more content not included)... [facility] Diagnosis BRCA2 gene mutation positive in female- Primary [facility] Name Dates Details Patient Instructions Indication:Nonsmoker Start:30-Aug-2020 Instruction Type:Provider Instructions for Treatment How to Access Health Informa tion Online using Patient Portal and 3rd [employer] Apps Indication:Nonsmoker Start:30-Aug-2020 Instruction Type:Patient Education [facility] Work Phone: insViewReple* Name Dates Details Patient Instructions Indication:Nonsmoker Start:30-Aug-2020 Instruction Type:Provider Instructions for Treatment How to Access Health Informa tion Online using Patient Portal and [employer]rd [employer] Apps Indication:Nonsmoker Start:30-Aug-2020 Instruction Type:Patient Education [facility]; [facility] Work Phone: insViewReple* Name Dates Details Patient Instructions Indication:Anxiety and depression Start:24-Jan-2021 Instruction Type:Provider Instructions for Treatment Patient Instructions Indication:Anxiety and depression Start:13-Oct-2020 Instruction Type:Provider Instructions for Treatment How to Access Health Informa tion Online using Patient Portal and [employer]rd [employer] Apps Indication:Anxiety and depression Start:13-Oct-2020 Instruction Type:Patient Education Patient Instructions Indication:Nonsmoker Start:30-Aug-2020 Instruction Type:Provider Instructions for Treatment How to Access Health Informa tion Online using Patient Portal and [employer]rd [employer] Apps Indication:Nonsmoker Start:30-Aug-2020 Instruction Type:Patient Education [facility]; [facility] Work Phone: insViewReple* Name Dates Details Patient Instructions Indication:Fatigue Start:11-Apr-2021 Instruction Type:Provider Instructions for Treatment Patient Instructions Indication:Anxiety and depression Start:24-Jan-2021 Instruction Type:Provider Instructions for Treatment Patient Instructions Indication:Anxiety and depression Start:13-Oct-2020 Instruction Type:Provider Instructions for Treatment How to Access Health Informa tion Online using Patient Portal and [employer]rd [employer] Apps Indication:Anxiety and depression Start:13-Oct-2020 Instruction Type:Patient Education Patient Instructions Indication:Nonsmoker Start:30-Aug-2020 Instruction Type:Provider Instructions for Treatment How to Access Health Informa tion Online using Patient Portal and [employer]rd [employer] Apps Indication:Nonsmoker Start:30-Aug-2020 Instruction Type:Patient Education [facility]; [facility] Work Phone: instructions* Name Dates Details Patient Instructions Indication:Separation of AC joint Start:15-Aug-2021 Instruction Type:Provider Instructions for Treatment Patient Instructions Indication:Fatigue Start:11-Apr-2021 Instruction Type:Provider Instructions for Treatment Patient Instructions Indication:Anxiety and depression Start:24-Jan-2021 Instruction Type:Provider Instructions for Treatment Patient Instructions Indication:Anxiety and depression Start:13-Oct-2020 Instruction Type:Provider Instructions for Treatment How to Access Health Informa tion Online using Patient Portal and [employer]rd [employer] Apps Indication:Anxiety and depression Start:13-Oct-2020 Instruction Type:Patient Education Patient Instructions Indication:Nonsmoker Start:30-Aug-2020 Instruction Type:Provider Instructions for Treatment How to Access Health Informa tion Online using Patient Portal and [employer] Apps Indication:Nonsmoker Start:30-Aug-2020 Instruction Type:Patient Education [facility]; [facility] Work Phone: instructions* Name Dates Details Patient Instructions Indication:Separation of AC joint Start:15-Aug-2021 Instruction Type:Provider Instructions for Treatment Patient Instructions Indication:Fatigue Start:11-Apr-2021 Instruction Type:Provider Instructions for Treatment Patient Instructions Indication:Anxiety and depression Start:24-Jan-2021 Instruction Type:Provider Instructions for Treatment Patient Instructions Indication:Anxiety and depression Start:13-Oct-2020 Instruction Type:Provider Instructions for Treatment How to Access Health Informa tion Online using Patient Portal and [employer] Apps Indication:Anxiety and depression Start:13-Oct-2020 Instruction Type:Patient Education Patient Instructions Indication:Nonsmoker Start:30-Aug-2020 Instruction Type:Provider Instructions for Treatment How to Access Health Informa tion Online using Patient Portal and 3rd [employer] Apps Indication:Nonsmoker Start:30-Aug-2020 Instruction Type:Patient Education [facility]; [facility] Work Phone: instructions* Name Dates Details Patient Instructions Indication:Hypogammaglobulinemia Start:02-Jan-2022 Instruction Type:Provider Instructions for Treatment How to Access Health Informa tion Online using Patient Portal and [employer]rd [employer] Apps Indication:Hypogammaglobulinemia Start:02-Jan-2022 Instruction Type:Patient Education Patient Instructions Indication:Separation of AC joint Start:15-Aug-2021 Instruction Type:Provider Instructions for Treatment Patient Instructions Indication:Fatigue Start:11-Apr-2021 Instruction Type:Provider Instructions for Treatment Patient Instructions Indication:Anxiety and depression Start:24-Jan-2021 Instruction Type:Provider Instructions for Treatment Patient Instructions Indication:Anxiety and depression Start:13-Oct-2020 Instruction Type:Provider Instructions for Treatment How to Access Health Informa tion Online using Patient Portal and [employer]rd [employer] Apps Indication:Anxiety and depression Start:13-Oct-2020 Instruction Type:Patient Education Patient Instructions Indication:Nonsmoker Start:30-Aug-2020 Instruction Type:Provider Instructions for Treatment How to Access Health Informa tion Online using Patient Portal and [employer] Apps Indication:Nonsmoker Start:30-Aug-2020 Instruction Type:Patient Education [facility]; [facility] Work Phone: instructions* Name Dates Details Patient Instructions Indication:Hypogammaglobulinemia Start:02-Jan-2022 Instruction Type:Provider Instructions for Treatment How to Access Health Informa tion Online using Patient Portal and [employer] Apps Indication:Hypogammaglobulinemia Start:02-Jan-2022 Instruction Type:Patient Education Patient Instructions Indication:Separation of AC joint Start:15-Aug-2021 Instruction Type:Provider Instructions for Treatment Patient Instructions Indication:Fatigue Start:11-Apr-2021 Instruction Type:Provider Instructions for Treatment Patient Instructions Indication:Anxiety and depression Start:24-Jan-2021 Instruction Type:Provider Instructions for Treatment Patient Instructions Indication:Anxiety and depression Start:13-Oct-2020 Instruction Type:Provider Instructions for Treatment How to Access Health Informa tion Online using Patient Portal and [employer] Apps Indication:Anxiety and depression Start:13-Oct-2020 Instruction Type:Patient Education Patient Instructions Indication:Nonsmoker Start:30-Aug-2020 Instruction Type:Provider Instructions for Treatment How to Access Health Informa tion Online using Patient Portal and [employer] Apps Indication:Nonsmoker Start:30-Aug-2020 Instruction Type:Patient Education [facility]; [facility] Work Phone: instructions* Name Dates Details Patient Instructions Indication:Hypogammaglobulinemia Start:02-Jan-2022 Instruction Type:Provider Instructions for Treatment How to Access Health Informa tion Online using Patient Portal and [employer]rd [employer] Apps Indication:Hypogammaglobulinemia Start:02-Jan-2022 Instruction Type:Patient Education Patient Instructions Indication:Separation of AC joint Start:15-Aug-2021 Instruction Type:Provider Instructions for Treatment Patient Instructions Indication:Fatigue Start:11-Apr-2021 Instruction Type:Provider Instructions for Treatment Patient Instructions Indication:Anxiety and depression Start:24-Jan-2021 Instruction Type:Provider Instructions for Treatment Patient Instructions Indication:Anxiety and depression Start:13-Oct-2020 Instruction Type:Provider Instructions for Treatment How to Access Health Informa tion Online using Patient Portal and [employer]rd [employer] Apps Indication:Anxiety and depression Start:13-Oct-2020 Instruction Type:Patient Education Patient Instructions Indication:Nonsmoker Start:30-Aug-2020 Instruction Type:Provider Instructions for Treatment How to Access Health Informa tion Online using Patient Portal and [employer]rd [employer] Apps Indication:Nonsmoker Start:30-Aug-2020 Instruction Type:Patient Education [facility]; [facility] Work Phone: Instructions* Name Dates Details Patient Instructions Indication:Hypogammaglobulinemia Start:02-Jan-2022 Instruction Type:Provider Instructions for Treatment How to Access Health Informa tion Online using Patient Portal and [employer]rd [employer] Apps Indication:Hypogammaglobulinemia Start:02-Jan-2022 Instruction Type:Patient Education Patient Instructions Indication:Separation of AC joint Start:15-Aug-2021 Instruction Type:Provider Instructions for Treatment Patient Instructions Indication:Fatigue Start:11-Apr-2021 Instruction Type:Provider Instructions for Treatment Patient Instructions Indication:Anxiety and depression Start:24-Jan-2021 Instruction Type:Provider Instructions for Treatment Patient Instructions Indication:Anxiety and depression Start:13-Oct-2020 Instruction Type:Provider Instructions for Treatment How to Access Health Informa tion Online using Patient Portal and [employer]rd [employer] Apps Indication:Anxiety and depression Start:13-Oct-2020 Instruction Type:Patient Education Patient Instructions Indication:Nonsmoker Start:30-Aug-2020 Instruction Type:Provider Instructions for Treatment How to Access Health Informa tion Online using Patient Portal and [employer]rd [employer] Apps Indication:Nonsmoker Start:30-Aug-2020 Instruction Type:Patient Education [facility]; [facility] Work Phone: Summary Purpose Family History Unknown Family Member Name Dates Details Family Members In General Comments:anxiety cad fibromy algia dm Status:Active Mother Comments:anxiety Status:Active Unknown Family Member Name Dates Details Family Members In General Comments:anxiety cad fibromy algia dm Status:Active Mother Comments:anxiety Status:Active Unknown Family Member Name Dates Details Family Members In General Comments:anxiety cad fibromy algia dm Status:Active Mother Comments:anxiety Status:Active Unknown Family Member Name Dates Details Family Members In General Comments:anxiety cad fibromy algia dm Status:Active Mother Comments:anxiety Status:Active Unknown Family Member Name Dates Details Family Members In General Comments:anxiety cad fibromy algia dm Status:Active Mother Comments:anxiety Status:Active Unknown Family Member Name Dates Details Family Members In General Comments:anxiety cad fibromy algia dm Status:Active Mother Comments:anxiety Status:Active Unknown Family Member Name Dates Details Family Members In General Comments:anxiety cad fibromy algia dm Status:Active Mother Comments:anxiety Status:Active Unknown Family Member Name Dates Details Family Members In General Comments:anxiety cad fibromy algia dm Status:Active Mother Comments:anxiety Status:Active Advance Directives No Advanced Directives Records FoundNo Advanced Directives Records FoundNo Advanced Directives Records FoundNo Advanced Directives Records FoundNo Advanced Directives Records FoundNo Advanced Directives Records FoundNo Advanced Directives Records Found Medications Administered Section Inactive Administered Medications - up to 3 most recent administrations Medication Order MAR Action Action Date Dose Rate Site keTORolac 60 mg injection (Toradol) 60 mg, INTRAMUSCULAR, ONCE, 1 dose, On Sun06/14/22 at 1500, Ketorolac (Toradol) is indicated for the short-term (up to 5 days) management of moderately severe acute pain. Continuation of ketorolac (Toradol) beyond 5 days increases the risk of developing serious adverse events. Please verify the duration of therapy for ketorolac (Toradol)., If ordered PRN for pain, patient/guardian may elect to receive this medication for higher pain levels INSTEAD of the opioid, if preferred: Yes Given 06/14/2022 2:50 PM EDT 60 mg Buttocks, Left levonorgestrel 21 mcg/24 hours (8 yrs) 52 mg 1 Each intrauterine device (MIRENA) 1 Each, INTRAUTERINE, ONCE (UP TO 30 DAYS AMB), 1 dose, On Sun06/14/22 at 1400, Hazardous Potential Reproductive Risk Drug: Use appropriate PPE. Given 06/14/2022 1:55 PM EDT 1 Each Additional Source Comments INFORMATION SOURCE (unrecogn ized section and content) DATE CREATED AUTHOR AUTHOR'S ORGANIZ ATION 04/27/2018 [facility] DATE CREATED AUTHOR AUTHOR'S ORGANIZ ATION 05/18/2018 [facility] DATE CREATED AUTHOR AUTHOR'S ORGANIZ ATION 11/24/2020 [facility] DATE CREATED AUTHOR AUTHOR'S ORGANIZ ATION 01/02/2022 [facility] DATE CREATED AUTHOR AUTHOR'S ORGANIZ ATION 06/28/2022 [facility] DATE CREATED AUTHOR AUTHOR'S ORGANIZ ATION 08/15/2022 [facility] Source Comments (unrecognize d section and content) In the event this informatio n is protected by the Federal Confidentiality of Alcohol and Drug Abuse Patient Records regulations: The Federal rules restrict any use of the information to criminally investigate or prosecute any alcohol or drug abuse patient.[facility] the event this information is protected by the Federal Confidentiality of Alcohol and Drug Abuse Patient Records regulations: The Federal rules restrict any use of the information to criminally investigate or prosecute any alcohol or drug abuse patient.[facility] the event this information is protected by the Federal Confidentiality of Alcohol and Drug Abuse Patient Records regulations: The Federal rules restrict any use of the information to criminally investigate or prosecute any alcohol or drug abuse patient.[facility] Reason for Visit (unrecogniz ed section and content) Specialty Diagnoses / Procedures Referred By Mega castillo Referred To Contact [facility] Diagnoses Encounter for insertion of mirena IUD Procedures INSERT INTRAUTERINE DEVICE LEVONORGESTREL IU 52MG 5 YR INSERT INTRAUTERINE DEVICE Byron Li MD [address] [place] [address] [facility] [address] [place] [id number] Referral ID Status Reason Start Date Expiration Date Visits Requested Visits Authorized [id number] Authorized Auto-Generat ed Referral 02/19/2022 02/18/2023 2 2 Specialty Diagnoses / Procedures Referred By Mega castillo Referred To Contact Diagnoses BRCA2 gene mutation positive in female Procedures CONSULT TO MEDICAL GENETICS - [facility]ER MED[facility] GENETICS COUNSELING EACH 30 MINUTES Byron Li MD [address] [place] [address] [id number] [place] [address] Referral ID Status Reason Start Date Expiration Date Visits Requested Visits Authorized [id number] Pending Review PCP Requested Referral Auto-Generate d Referral 05/31/2022 05/30/2023 1 1 Reason Onset Date Comments Refill Request 12/18/2022 FOR RECORDS PERTAINING TO PATIENTS WHO ARE OR HAVE BEEN ENROLLED IN A CHEMICAL DEPENDENCY/SUBSTANCEABUSE PROGRAM, SOME INFORMATION MAY BE OMITTED. This clinical summary was aggregated from multiple sources. Caution should be exercised in using it in the provision of clinical care. This summary normalizes information from multiple sources, and as a consequence, information in this document may materially change the coding, format and clinical context of patient data. In addition, data may be omitted in some cases. CLINICAL DECISIONS SHOULD BE BASED ON THE PRIMARY CLINICAL RECORDS. [facility]. provides no warranty or guarantee of the accuracy or completeness of information in this document.
[2023-03-16 18:00] LABS: Internal QC Validated? YES +Cl - CLEAR BKGD; Pregnancy, Urine Negative Negative
== END | disposition home or self-care (01) ==
LOC: MTLAB 15:41
PROVIDERS: PCP Pediatrics; Referring Provider Dermatology; Visit Provider Dermatology
DX: L70.0 Acne vulgaris (principal); L90.5 Scar conditions and fibrosis of skin; L85.3 Xerosis cutis; L23.3 Allergic contact dermatitis due to drugs in contact with skin; K13.0 Diseases of lips; M79.10 Myalgia, unspecified site; Z79.899 Other long term (current) drug therapy
CPT/HCPCS: 81025

== ENCOUNTER 2023-09-19 08:18 | Emergency (ER) | payer OTHER, SELFPAY ==
[2023-09-19 08:18] VITALS: BP 131/83; PULSE 122; RESP 20; TEMP 38.1; O2SAT 95; BMI 29.5
--- NOTE | 2023-09-19 08:39 | CT_ITS ---
STUDY: CT BRAIN WITHOUT CONTRAST REASON FOR EXAM: Female, 23 years old. Headache RADIATION DOSAGE (If Supplied By Facility): CTDIvol = ( 44.99 ) mGy, DLP = ( 1153.53 ) mGycm TECHNIQUE: Transaxial CT imaging of the brain was performed without administration of intravenous contrast material. Individualized dose optimization techniques were used for this CT. COMPARISON: No relevant priors. FINDINGS: Normal soft tissue structures. Normal calvarium. Normal size ventricles and extra-axial spaces for the patient''s age. Normal white matter tracts of the cerebral hemispheres. Normal basal ganglia and thalami. Normal brainstem. Normal cerebellum. There is no intracranial hemorrhage. There are no findings of an acute ischemic infarction. Normal visualized paranasal sinuses. CT/Brain/Head without Contrast IMPRESSION: Normal unenhanced CT scan of the brain. Electronically Signed: Akil Saleh MD at 9:58 EDT ,
--- NOTE | 2023-09-19 08:40 | EKG12_ITS ---
Test Reason : SOB Blood Pressure : / mmHG Vent. Rate : 095 BPM Atrial Rate : 095 BPM P-R Int : 154 ms QRS Dur : 084 ms QT Int : 338 ms P-R-T Axes : 048 020 026 degrees QTc Int : 424 ms Normal sinus rhythm Normal ECG Confirmed by MACY LEES, STANFORD ([id number]), editor in chief ELIOT RAMOS ([id number]) on 09/21/2023 10:22:10 AM Referred By: Confirmed By:FARIDEH CAVAZOS MD
--- NOTE | 2023-09-19 08:52 | EDS_ITS ---
HPI History of Present Illness Chief Complaint: Fever Narrative Narrative: Patient is a 23-year-old female with a past medical history of hypogammaglobulinemia who presented to the emergency department with a chief complaint headache, fever, chills, neck pain and back pain. Patient states that she has been ill since Sunday and states that she feels like she is getting worse. She states that she has been taking Advil and Tylenol [id number] without any symptomatic relief. She noted that she was shaking for approximately 3 hours yesterday. Patient states that she has not been around anybody sick recently noted that her sibling have been sick about a week to 2 weeks ago now with a virus. Denies any other recent sick contacts, travel history, dorm room stay or other close quarters today. Patient rates her headache a 10 out of 10 here in the emergency department states that lights and loud noises bother her head. [facility] Medical History Immune deficiency disorder Home Medications ?Medication ?Instructions ?Recorded ?Last Taken ?Type ibuprofen 200 mg tablet (Advil) 200 mg PO Q6H PRN Pain 02/07/20 09/19/23 History duloxetine 30 mg capsule,delayed 30 mg PO DAILY 12/19/22 09/16/23 History release cyanocobalamin (vitamin B-12) 1,000 mcg IM Q21D 09/19/23 09/13/23 History 1,000 mcg/mL injection solution Allergy/AdvReac Type Severity Reaction Status Date / Time No Known Allergies Allergy Verified 03/27/23 09:39 Family History no significant family his Social History Smoking Status: Never smoker ROS ROS ED ROS Narrative Constitutional: Complains of headache and fever and chills as noted above denies any dizziness Eyes: Denies any changes in vision double vision blurry vision Cardiovascular: Denies chest pain or palpitations Respiratory: Complains of cough denies any shortness of breath or wheezing Abdomen: Denies abdominal pain vomiting diarrhea states that she does have some nausea : Denies any painful urination, hematuria, polyuria Neurological: Denies any numbness, weakness, tingling Musculoskeletal: Complains of back pain as noted above Skin: Denies rashes or lesions EXAM Physical Exam Narrative Exam Narrative: General: Patient was lying in bed did appear to be uncomfortable secondary to headache and not feeling well Head: Atraumatic, normocephalic Eyes: PERRL bilaterally, EOMI bilaterally, no conjunctival injection noted Neck: Soft, supple, trachea midline, patient does have full range of motion of her neck no concern for meningitis. Cardiovascular: Patient was tachycardic with a regular rhythm no murmurs gallops rubs noted Respiratory: Clear to auscultation bilaterally no rales rhonchi or wheezes noted Abdomen: Soft, nondistended, no tenderness palpation Extremities: +5/5 strength noted in the bilateral upper and lower extremities, radial pulses +2/4 in the bilateral per extremities Neurological: Patient was following commands that she was at [facility] year is 2023. NIH is 0 GCS 15 Skin: Warm, dry, intact, no rashes or lesions noted Const Vital Signs: 09/19/23 08:18 09/19/23 08:35 09/19/23 10:15 Temperature 100.5 F H 99.7 F H Temperature Source Oral Oral Pulse Rate 122 H 93 Respiratory Rate 20 H 18 Respiratory Effort Normal Respiratory Pattern Normal Blood Pressure 131/83 H 138/87 H Blood Pressure Mean 99 104 Pulse Ox 95 93 Oxygen Delivery Method Room Air Room Air MDM MDM MDM Narrative Medical decision making narrative: Patient is a 23-year-old female who presented to the emergency department with a chief complaint of fever, chills, headache and back pain. Patient will have a workup performed here on the differential diagnose includes but limited to strep throat, mono, UTI, pyelonephritis, upper respiratory infection second viral etiology, pneumonia. Once workup is obtained reviewed she will be reevaluated. Patient will be given 30 cc/kg bolus of IV fluids. She will be given Reglan, Toradol. Patient's CBC reviewed and showed a normal leukocytosis of 6.2, hemoglobin 15.2, platelet count was noted be normal 173. Patient's sodium was notably normal 137, potassium 3.4, creatinine normal at 0.66. Patient lactic acid normal at 0.8. Patient's troponin was less than 3. Patient's urinalysis did not reveal any evidence of infection. Patient's test was negative. Patient had CT reviewed and showed normal unenhanced CT of the brain. Patient's x-ray of her chest showed a dense consolidation in the lateral aspect of the left upper lobe as well as in the lingular segment of the left upper lobe patchy infiltrate in the right middle lobe as well. Patient was given IV ceftriaxone and azithromycin. Patient respiratory panel pending, strep throat was negative. Patient blood cultures are pending at this point in time. Patient's COVID test is pending at this point as well. Patient's EKG was reviewed and showed sinus rhythm with a rate of 95 bpm. At this point in time do believe the patient warrants admission to the hospital for her immunosuppression and pneumonia. Did discuss the case with hospitalist Dr. Mcnulty who came down and evaluated the patient at bedside. He states that he discussed the case with the pulmonology team here and did recommend ambulating here in the emergency department if her oxygen level does not drop she can be discharged home on antibiotics. Patient was ambulated here in the emergency department for a significant time and she had no evidence of hypoxia. Dr. Mcnulty wrote prescriptions for the patient discharged her home on Levaquin, albuterol, Vicodin, Zofran. See his note for further details as well. Patient was given return precautions instructed to return with worsening symptoms or other concerns. Her and her parents at bedside are agreeable with this plan. They would like to go home all question concerns were answered at bedside she was discharged home in stable condition. Lab Data Labs: Laboratory Results - last 24 hr 09/19/23 09/19/23 08:50 09:15 WBC 6.2 RBC 5.07 Hgb 15.2 H Hct 43.3 MCV 85.4 MCH 30.0 MCHC 35.1 RDW Std Deviation 35.6 RDW Coeff of Bambi 11.6 Plt Count 174 MPV 11.3 Immature Gran % (Auto) 0.500 Neut % (Auto) 78.3 H Lymph % (Auto) 14.9 L Morrill % (Auto) 5.8 Eos % (Auto) 0.3 Baso % (Auto) 0.2 Absolute Neuts (auto) 4.8 Absolute Lymphs (auto) 0.92 Nucleated RBC % 0 PT 14.3 INR 1.1 APTT 31.0 Sodium 137 Potassium 3.4 L Chloride 108 H Carbon Dioxide 24.0 Anion Gap 5 BUN 13 Creatinine 0.66 Estim Creat Clear Calc 131.42 Est GFR (MDRD) Af Amer 146 Est GFR (MDRD) Non-Af 121 BUN/Creatinine Ratio 19.8 Glucose 106 Lactic Acid 0.8 Calcium 8.7 Total Bilirubin 0.40 AST 22 ALT 25 Alkaline Phosphatase 70 Troponin I High Sens < 3 L Total Protein 6.7 Albumin 3.1 L Globulin 3.6 Albumin/Globulin Ratio 0.9 Urine Color Yellow Urine Clarity Clear Urine pH 6.5 Ur Specific [place] 1.010 Urine Protein 30 H Urine Glucose (UA) Normal Urine Ketones 50 H Urine Occult Blood 50 H Urine Nitrite Negative Urine Bilirubin Negative Urine Urobilinogen Normal Ur Leukocyte Esterase 25 H Urine RBC 0-5 SEEN Urine WBC 0 SEEN Ur Squamous Epith Cells 0-5 SEEN Urine Bacteria RARE Urine Mucus 0 SEEN Urine Test Negative Radiography Diagnostic Testing: Clinical Impression(s) from Imaging Studies Brain CT 09/19/23 08:39 IMPRESSION: Normal unenhanced CT scan of the brain. Electronically Signed: Akil Saleh MD at 9:58 EDT , Chest X-Ray 09/19/23 09:30 IMPRESSION: Dense consolidation in the lateral aspect of the left upper lobe as well as in the lingular segment of the left upper lobe. Patchy infiltrate in the right middle lobe. Electronically Signed: Akil Saleh MD at 9:54 EDT , Discharge Plan Triage Chief Complaint: Fever ED Provider: Houston Quiñonez Dx/Rx/DC Orders Clinical Impression: Pneumonia, Fever Prescriptions: No Action ibuprofen [Advil] 200 mg tablet 200 mg PO Q6H PRN (Reason: Pain) duloxetine 30 mg capsule,delayed release(DR/EC) 30 mg PO DAILY cyanocobalamin (vitamin B-12) 1,000 mcg/mL solution 1,000 mcg IM Q21D Primary Care Provider: Care Physician,No Primary Referrals: Carmen Isabel MD [Non-Staff] - Activity Restrictions/Additional Instructions: Take antibiotics as prescribed and other medications as prescribed. Follow-up your primary care physician in the outpatient setting. Return with worsening symptoms or any concerns as discussed here in the emergency department. Print Language: Japanese Disposition Disposition: Home, Self Care
[2023-09-19] MEDS: Metoclopramide 10 MG/2 ML Vial IV (09:10)
[2023-09-19] MEDS: Ketorolac 30 MG/ML Syringe IV (09:10)
[2023-09-19] MEDS: 0.9% Normal Saline (1000mL) 1,000 ML 999 ML IV ×3 (09:11→10:41)
--- NOTE | 2023-09-19 09:30 | RAD_ITS ---
STUDY: X-RAY CHEST REASON FOR EXAM: Female, 23 years old. Cough TECHNIQUE: PA and lateral views of the chest. COMPARISON: Comparison is made with prior study dated November 16, 2020. FINDINGS: EKG electrodes are seen. There is consolidation in the peripheral aspect of the left upper lobe and lingular segment of the left upper lobe. Patchy infiltrate in the right middle lobe. There is no demonstrated pleural abnormality. Normal size heart. Normal mediastinum and jorge. Normal visualized pulmonary arteries. Normal visualized aortic arch and descending thoracic aorta. Normal visualized thoracic spine. Normal visualized ribs, clavicles, and shoulders. There is no demonstrated abnormality of the visualized soft tissue structures of the upper abdomen. RAD/Chest PA and Lateral IMPRESSION: Dense consolidation in the lateral aspect of the left upper lobe as well as in the lingular segment of the left upper lobe. Patchy infiltrate in the right middle lobe. Electronically Signed: Akil Saleh MD at 9:54 EDT ,
[2023-09-19 09:42] LABS: International Normalized Ratio 1.1; Prothrombin Time (Protime)PT. 14.3 SECONDS (11.7-14.9)
[2023-09-19 09:45] LABS: Mucous, Urine 0 SEEN /hpf (<or=2+); White Blood Cells 0 SEEN /hpf (0-5)
[2023-09-19 09:48] LABS: ALB/GLOB Ratio 0.9 RATIO (0.9-2.4); AST(SGOT) 22 U/L (15-37); Absolute Lymphocyte Count 0.92 X10^3/uL (0.83-4.51); Absolute Neutrophil Count 4.8 X10^3/uL (2.0-7.7); Alanine Aminotransfer ALT/SGPT 25 U/L (13-56); Albumin, Serum 3.1 g/dL (3.2-5.0); Alkaline Phosphatase 70 U/L (45-117); Anion Gap 5 (5-15); BUN 13 mg/dL (7-18); BUN/Creat Ratio 19.8 RATIO (10-20); Basophil# 0.01 X10^3/uL; Basophil% 0.2 % (0-1); Calcium,Total 8.7 mg/dL (8.5-10.1); Chloride 108 mmol/L (98-107); Creatinine, Serum 0.66 mg/dL (0.55-1.02); EST Glomerular Filtration Rate 121 mL/min (>60); Eosinophil# 0.02 X10^3/uL; Eosinophils% 0.3 % (0-5); Est Glom Filt Rate - Afr Amer 146 mL/min (>60); Estimated Creatinine Clearance 131.42 ml/min; Globulin 3.6 g/dL (2.2-4.2); Glucose 106 mg/dL (74-106); Hematocrit 43.3 % (37-47); Hemoglobin 15.2 g/dL (12.0-15.0); Lymphocyte # 0.92 X10^3/ul (0.83-4.51); Lymphocyte % 14.9 % (19-41); Mean Corp Hgb Conc 35.1 g/dL (32-36); Mean Corpuscular Volume 85.4 fL (81-99); Mean Platelet Vol. 11.3 fl (6.2-12.0); Monocyte# 0.36 X10^3/uL; Monocyte% 5.8 % (0-10); NRBC Flagged by Analyzer 0 % (0-5); Neutrophil # 4.82 X10^3/uL (2.7-7.7); Neutrophil % 78.3 % (47-70); Platelet Count 174 K/mm3 (150-450); Potassium 3.4 mmol/L (3.5-5.1); Protein, Total 6.7 g/dL (6.4-8.2); RBC Distribution Width CV 11.6 % (11.6-14.6); RBC Distribution Width SD 35.6 fl (35.1-43.9); Red Blood Count 5.07 M/mm3 (4.2-5.4); Sodium Level 137 mmol/L (136-145); Troponin-I HS < 3 pg/mL (3.0-54.0); White Blood Count 6.2 K/mm3 (4.4-11.0)
[2023-09-19 09:53] LABS: Lactic Acid 0.8 mmol/L (0.4-1.9)
[2023-09-19] MEDS: Ceftriaxone 2 GM in 0.9% Normal Saline (50mL MB+) 50 ML IV (09:55)
[2023-09-19 10:00] LABS: Color, Urine Yellow (Yellow); Glucose, Dipstick Normal (Normal); Ketone-Dipstick 50 mg/dl (Negative); Leukocyte Esterase-Dipstick 25 /ul (Negative); Nitrite-Dipstick Negative (Negative); Occult Blood-Urine 50 /ul (Negative); Protein-Dipstick 30 mg/dl (Negative); Urine Bilirubin Dipstick Negative (Negative); Urine Clarity Clear (Clear); Urine Urobilinogen Normal (Normal); Urine pH 6.5 (5.0 - 8.0)
[2023-09-19 10:03] LABS: Internal QC Validated? YES +Cl - CLEAR BKGD; Pregnancy, Urine Negative Negative
[2023-09-19 10:06] LABS: Red Blood Cells-Urine 0-5 SEEN /hpf (0-5); Squamous Epithelial Cells - UA 0-5 SEEN /hpf (5-10)
[2023-09-19 10:07] LABS: Bacteria RARE /hpf (None Seen)
[2023-09-19 10:15] VITALS: BP 138/87; PULSE 93; RESP 18; TEMP 37.6; O2SAT 93
--- NOTE | 2023-09-19 10:36 | NURSING ---
DR ÁLVAREZ FOR DR BANGURA
[2023-09-19] MEDS: Azithromycin 500 MG in Dextrose 5%-Water (250mL Bag) 250 ML 250 MG IV (10:40)
[2023-09-19 11:11] VITALS: O2SAT 99
[2023-09-19] MEDS: Morphine 4 MG/ML Syringe IV (11:24)
[2023-09-19 12:00] VITALS: BP 134/76; PULSE 88; RESP 20; TEMP 38.1; O2SAT 99
[2023-09-19 12:04] VITALS: BP 134/76; PULSE 88; RESP 20; TEMP 38.1; O2SAT 99
[2023-09-19 13:23] LABS: Internal QC Validated? YES +Cl - CLEAR BKGD; Monotest Negative (Negative); Record Kit Lot#, Mono 13241033
--- NOTE | 2023-09-19 13:42 | PCM.HOSP.N ---
Hospitalist Note This 23-year-old white female was seen in the emergency room at request of the emergency room physician for possible admission to the hospital for bilateral pneumonia. Patient has been ill for a couple of days and has been running a temperature at home and having chills, I talked with her mother and father who are in the room at the time my examination. Patient's lab was reviewed, her white blood cell count is normal, chemistry profile was abnormal for potassium of 3.4, chest x-ray showed a right sided infiltrate which was faint, there was also a left upper lobe infiltrate and a left lingular infiltrate. Patient did not appear in any respiratory distress, patient was ambulated and her pulse ox on ambulation was 96%. On examination, I could not appreciate any rales rhonchi or wheezes, patient did not appear short of breath and mostly complained of a severe headache. I went over treatment options with the patient and her family, I felt that the patient could go home with oral antibiotics and pain medications for her headache, I also recommended using an inhaler for the next 5 to 7 days, I also gave her a prescription for Zofran for nausea. Patient and the patient's family were okay with this approach, I called the prescriptions into the [facility] pharmacy in town here and gave her a written prescription for [facility] to take to the pharmacy. Patient was cautioned return to the hospital if her condition worsens, she was instructed to follow-up with her PCP next week.
== END 2023-09-19 12:10 | disposition home or self-care (01) ==
PROVIDERS: Emergency Provider Emergency Medicine; Visit Provider Emergency Medicine
DX: J18.9 Pneumonia, unspecified organism (principal); R51.9 Headache, unspecified; D84.9 Immunodeficiency, unspecified
CPT/HCPCS: 70450; 71046; 80053; 81001; 81025; 83605; 84484; 85025; 85610; 85730; 86308; 87040; 87086; 87633; 87635; 87651; 93005; 96361; 96374; 96375; 99283; J7030; A4216; J0696

== ENCOUNTER → 2023-12-18 | Outpatient (CLI) | payer OTHER, SELFPAY ==
--- NOTE | 2023-12-18 10:01 | RAD_ITS ---
HISTORY: PNEUMONIA. TECHNIQUE: XR Chest 2 Views. COMPARISON: 09/19/2023. FINDINGS: CARDIOMEDIASTINAL BORDERS: Cardiac silhouette within normal limits in size. Mediastinal contour unremarkable. LUNGS: Radiographically clear. Interval resolution of left upper lobe consolidation. PLEURA: No pleural effusion or pneumothorax seen. OSSEOUS STRUCTURES: Unremarkable. RAD/Chest PA and Lateral IMPRESSION: No acute cardiopulmonary process identified. Electronically Signed: Katrina Veliz MD at 10:57 EDT ,
== END | disposition home or self-care (01) ==
PROVIDERS: PCP Nurse Practitioner Family; Referring Provider Nurse Practitioner Family; Visit Provider Nurse Practitioner Family
DX: R09.89 Other specified symptoms and signs involving the circulatory and respiratory systems (principal)
CPT/HCPCS: 71046

== ENCOUNTER 2024-12-22 12:35 | Outpatient (CLI) | payer OTHER, SELFPAY | END 2024-12-22 23:59 | disposition home or self-care (01) | PROVIDERS: PCP Nurse Practitioner Family | DX: D84.9 Immunodeficiency, unspecified (principal) | CPT/HCPCS: 36415 ==